=== PATIENT | female | born 1965 | race Caucasian/White ===

== ENCOUNTER 2021-04-27 05:48 | Emergency (ER) | payer MEDICAID ==
[~2021-04-27] VITALS: Ht 170.2 cm; Wt 62.6 kg
[~2021-04-27 05:48] MED LIST: ALPRAZOLAM 0.0.25 MG PO; CIPROFLOXACIN500 M1 PO; EFFEXOR50 MG; FLEXERIL PO; IBUPROFEN 800800 M1 PO; K-DUR 20 MEQ T20 MEQ PO; LEVOTHYROXINE0.2 M1; NAPROSYN500 MG PO; NORCO 5-325 TA1 EACH PO; OXYCONTIN30 MG PO; PREDNISONE 20 M20 MG PO; PROVERA10 MG PO; ZOFRAN ODT4 MG PO; ZOLOFT100 MG PO; ZPAK PO
[2021-04-27 06:29] LABS: CALCIUM 8.6 mg/dL (8.5-10.1); POTASSIUM 3.7 mmol/L (3.5-5.1)
[2021-04-27 06:34] LABS: ALBUMIN 3.9 g/dL (3.4-5.0); TOTAL BILIRUBIN 0.6 mg/dL (<0.1-1.0); TOTAL PROTEIN 7.6 g/dL (6.4-8.2)
[2021-04-27] MEDS ORDERED: SYNTHROID200 MCG PO (06:50)
[2021-04-27 07:27] VITALS: BP 124/79
--- NOTE | 2021-04-28 09:22 | EKG ---
[place] [address] ELECTROCARDIOGRAM REPORT Name: ELINOR SPENCER Room: [facility]#: [id number] Admission: 04/27/21 Attend Phys: Discharge: 04/27/21 Date of : 67 Date of Service: 04/27/21617 Report #: [id number] THIS REPORT FOR: //name// [facility] ED Test Date: 2021-04-27 Test Time: 06:18:14 Pat Name: ELINOR JOHANNA Department: Room: Gender: F [employer]: [place] : 1965 Requested By: Rafaela Chaudhry Order Number: [id number] MD: Denys Dc Measurements Intervals [place] Rate: 61 P: 88 HI: 174 QRS: 86 QRSD: 54 T: 73 QT: 474 QTc: 478 Interpretive Statements Sinus rhythm Anteroseptal infarct, age indeterminate possible Nonspecific T abnormalities, lateral leads Compared to ECG 06/17/2013 15:15:27 Myocardial infarct finding now possible Possible ischemia no longer present Anterior precordial ST-T abnormalities have diminished Electronically Signed On 04-28-2021 9:22:15 [employer] by Denys Dc [email or web address] <ELECTRONICALLY SIGNED> By: Denys Dc MD, FACC 04/28/21921 7 7 Denys Dc MD, FAC /EPI
== END 2021-04-27 07:30 | disposition home or self-care (01) ==
LOC: M.ERS 05:48
PROVIDERS: Emergency Medicine
DX: E06.3 Autoimmune thyroiditis (principal); Z76.0 Encounter for issue of repeat prescription; M79.89 Other specified soft tissue disorders; R26.2 Difficulty in walking, not elsewhere classified; F17.210 Nicotine dependence, cigarettes, uncomplicated; Z98.890 Other specified postprocedural states